=== PATIENT | female | born 1985 | race Asian ===

== ENCOUNTER → 2023-11-16 | Day surgery (SDC) | payer BC | END | disposition home or self-care (01) | LOC: JRADIR 10:13 | PROVIDERS: ATTEND Obstetrics & Gynecology | PROC: BU18YZZ Fluoroscopy of Uterus and Fallopian Tubes using Other Contrast (ICD-10-PCS; principal; 2023-11-16) | DX: N97.9 Female infertility, unspecified (principal) | CPT/HCPCS: 58340; 74740-TC-FY; 76000-TC-FY ==